=== PATIENT | female | born 1965 | race Caucasian/White ===

== ENCOUNTER 2021-01-25 20:01 | Emergency (ER) | payer MEDICAID ==
[~2021-01-25] VITALS: Ht 167.6 cm; Wt 100.0 kg
[2021-01-25 20:30] VITALS: BP 168/103
[2021-01-25] MEDS ORDERED: AZIT250T PO (21:02)
[2021-01-25] MEDS ORDERED: BENZ-38 PO (21:02)
== END 2021-01-25 21:54 | disposition home or self-care (01) ==
LOC: ER 20:01
DX: J06.9 Acute upper respiratory infection, unspecified (principal); Z20.822 Contact with and (suspected) exposure to COVID-19
CPT/HCPCS: 71045; 87635; 99284; C9803

== ENCOUNTER 2024-10-03 07:03 | Emergency (ER) | payer MEDICAID ==
[~2024-10-03] VITALS: Ht 160 cm; Wt 69.1 kg
[~2024-10-03 07:03] MED LIST: AZIT250T PO
--- NOTE | 2024-10-03 07:32 | ELECTROCARDIOGRAPH REPORT ---
[facility] Test Date: 2024-10-03 Test Time: 07:29:48 Pat Name: ARTURO KANG Department: [facility] Patient ID: [id number] Room: Gender: F Coppersmith Helper: VENECIA : 1965 Requested By: CAL ARCHER Order Number: [id number] Reading MD: Measurements Intervals [place] Rate: 63 P: 44 SC: 125 QRS: 28 QRSD: 98 T: 51 QT: 448 QTc: 459 Interpretive Statements Sinus rhythm Probable left atrial enlargement RSR' in V1 or V2, right VCD or RVH Please click the below link to view image of tracing.
[2024-10-03 07:36] LABS: MEAN PLATELET VOLUME 10.0 FL (7.4-10.4); RED CELL DISTRIBUTION WIDTH 13.9 % (11.5-14.5)
[2024-10-03 07:55] LABS: CREATININE 0.84 MG/DL (0.40-0.90); PRO BRAIN NATRIURETIC PEPTIDE 130 PG/ML (0-125); TOTAL CARBON DIOXIDE 23.7 MMOL/L (24-32); eCRCL 60 ML/MIN; eGFR 69 ML/MIN
--- NOTE | 2024-10-03 08:07 | Physician Documentation ---
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 No palliating or aggravating factors were elicited with the patient. She did not attempt to treat her symptoms and was transported into the emergency department. It was not accompanied by chest pain. Did report some shortness a breath. All this was accompanied by rather severe nausea. Reports generalized weakness. Symptoms are abating. Glucose was slightly elevated at 1:34 a.m. despite patient fasting all night. No concern for tobacco, alcohol or illicit substances use Medication Reconciliation Allergies: Coded Allergies: No Known Allergies (Unverified , 01/25/21) Scheduled Azithromycin (Zithromax), 1 DOSPAK PO UD Past Medical History Past Medical History: No Pertinent History Past Surgical History: no surgical history Drug Use: none Lives In: Home Review of Systems ROS 10 point review of systems was performed and unless noted above in HPI is negative for acute process/complaint. Physical Exam Vital Signs: Temperature: 97.6, Source: Temporal, Heart Rate: 65, Respiratory Rate: 12, BP: 136/70, Pulse Oximetry: 97, Weight: 69.090 Oxygen Flow Rate: 0 Physical Exam Physical examination: GENERAL: Awake, alert, oriented, GCS 15, no apparent distress, non-toxic appearing, answers questions, follows commands appropriately. HEENT: Atraumatic, normocephalic, pupils equal, extraocular muscles intact Active gross movements, sclerae anicteric, mucus membranes moist, no stridor. NECK: Midline, no JVD CARDIOVASCULAR: Good skin perfusion without evidence of pallor, mottling. PULMONARY: Nonlabored, symmetric chest rise, no audible wheezing, no accessory muscle use, no respiratory distress, speaking in full sentences. GASTROINTESTINAL: Not distended. NEUROLOGIC: Lucid with normal mental status. Normal facial symmetry. Moves all extremities symmetrically and with purpose. No truncal ataxia. Speech is fluid without evidence of dysarthria or aphasia, no focal deficits appreciated. EXTREMITIES: Acute deformities Skin: warm, dry PSYCHIATRIC: Normal affect, normal insight, normal concentration. Focused exam: [] Progress Results/Orders Results/Orders Orders - CAL ARCHER DO Chest,Single View (10/03/24 07:14) Monitor (10/03/24 07:14) Saline Lock (10/03/24 07:14) Oxygen (10/03/24 07:14) Hs Troponin I W Calculations (10/03/24 10:14) Completed Orders - CAL ARCHER DO Chest,Single View (10/03/24 07:14) Cbc/Diff (10/03/24 07:14) BMP (10/03/24 07:14) PBNP (10/03/24 07:14) Electrocardiogram (10/03/24 07:14) Hs Troponin I W Calculations (10/03/24 07:14) Hs Troponin I W Calculations (10/03/24 09:14) TSH (10/03/24 07:19) Free T4 (10/03/24 07:19) D-Dimer (10/03/24 09:05) Vital Signs 10/03/24 10/03/24 10/03/24 07:04 07:25 08:00 Temp 97.6 97.6 Pulse 86 65 Resp 20 12 12 B/P (MAP) 136/70 136/70 (92) Pulse Ox 99 97 O2 Flow Rate 0 0 Laboratory Tests Test 10/03/24 07:23 10/03/24 09:26 White Blood Count 15.9 H Red Blood Count 4.64 Hemoglobin 15.1 Hematocrit 43.8 Mean Corpuscular Volume 94.4 Mean Corpuscular Hemoglobin 32.6 H Mean Corpuscular Hemoglobin Concent 34.6 Red Cell Distribution Width 13.9 Platelet Count 225 Mean Platelet Volume 10.0 Neutrophils (%) (Auto) 68.1 Lymphocytes (%) (Auto) 23.8 Monocytes (%) (Auto) 6.3 Eosinophils (%) (Auto) 1.2 Basophils (%) (Auto) 0.6 Neutrophils # (Auto) 10.8 H Lymphocytes # (Auto) 3.8 Monocytes # (Auto) 1.0 H Eosinophils # (Auto) 0.2 Basophils # (Auto) 0.1 CBC Comment D-Dimer 0.31 D-Dimer Comment Sodium Level 137 Potassium Level 3.6 Chloride Level 104 Carbon Dioxide Level 23.7 L Anion Gap 9 Blood Urea Nitrogen 12 Creatinine 0.84 Estimated GFR/1.73 m2 69 BUN/Creatinine Ratio 14.3 Glucose Level 134 H Calcium Level 8.8 Troponin I High Sensitivity 8 5 Pro-B-Type Natriuretic Peptide 130 H Albumin 3.6 Thyroid Stimulating Hormone (TSH) 1.16 Free Thyroxine 1.23 Chemistry Comments Troponin I High Sens Percent Delta 37 Troponin I Hi Sens Absolute Change -3 Medical Decision Making Findings Facility Status: ED Holds, [facility] process The plan was discussed with the patient, who demonstrates clear understanding of the plan and is in agreement with the plan unless otherwise noted in the chart. All questions have been answered, all concerns were addressed unless otherwise documented. I was available throughout their ED stay for frequent reassessment and questions. Differential Diagnoses (considered and possible or likely): [Syncope/near- syncope, atrial arrhythmia such as a flutter, AFib, less likely ventricular arrhythmia, dehydration, electrolyte derangement, ACS, hypoglycemia, less likely PE] ??Differential Diagnoses (considered and unlikely, not requiring evaluation currently): [No evidence of lateralizing sinuses suspect a stroke] MDM Data Please see [facility] for the following: Independent Historians and external Records Review. Historian: [Patient] Independent Historians: ?[Record review] Medication Management: [Reviewed medication list] Social History and determinants: [Reviewed] Please see the body of the note for the following: Any independent interpretations of ECG, imaging studies. All vitals signs/haemodynamics, ordered tests were independently reviewed and interpreted by myself. Nursing triage complaint and vitals reviewed, additional nursing notes were reviewed as available and I agree unless otherwise noted or documented in contradiction in the chart Vital Signs: Independently reviewed Labs: Independently interpreted Imaging: Independently interpreted Old Medical Records: Independently reviewed, see HPI for relevant summary and information Pulse Oximetry: [97%] interpreted as [normal on room air] by me [Roadmaster: [Regular Rate, Regular rhythm, no ectopy, NSR] reviewed and interpreted by me] Additionally notably showing: [Hemodynamics reviewed. The patient isn't febrile, not tachycardic, no evidence of hypotension respiratory distress. Laboratory studies reviewed. Mild leukocytosis noted. No neutrophilic predominance. D-dimer is negative. Chemistry panel notable for slightly elevat ed glucose. Negative troponin. Thyroid studies are normal. Chest x-ray was obtained [place] no acute cardiopulmonary disease.] Tests considered but not ordered include: [CTA has been considerably does not appear to be necessary given negative D-dimer] Social Determinants of Health Impact: Patient was evaluated in [facility], [facility] [place] healthcare due to below par ratio of patient to medical providers. [] Comorbid Conditions Impacting Present Evaluation and Care/Treatment: [None] Management Discussions with other Healthcare Providers: [Non] Treatment and Disposition Medication Management (Given or considered): []. See EMR for details Consideration for Hospitalization/Escalation/Deescalation of Care: Admission for observation has been considered, [however the patient is able to tolerate p.o., their symptoms are controlled, they are able to rely on oral medications, and their chief complaint/diagnosis can be managed on outpatient basis.] ?ED Course:?[No clinical deterioration. No explanation for the presenting symptoms. The patient should follow-up with her primary care provider.] ?Shared decision making:?[Patient is hemodynamically stable for discharge home with follow with their primary care provider. [ ] Specific and cautious return precautions provided and discussed with full understanding. Any incidental findings were also discussed and follow up recommendations given. [] All questions answered. Patient/family were able to verbalize back return precautions. Patient/family agree to plan. Copies of imaging and laboratory studies were provided.] Code status:?FULL Please see the full Electronic Medical Record for full details of nursing documentation, medications list, other records of complete past medical history and conditions, vital signs, laboratory studies, and any radiologic study interpretations by radiologists. Portions of this note were completed using [employer] dictation software and as a result there may exist minor errors in spelling. I have reviewed elements of past family and social history and agree as included in note. Departure Disposition: 01 HOME / SELF CARE / HOMELESS Impression: Primary Impression: Dizziness Additional Impression: Transient hypotension Condition: Improved Discharge Instructions: Dizziness Referrals: NO PRIMARY CARE PROVIDER (PCP) Education Educated: Patient Educated regarding: diagnosis, treatment, prognosis, need for follow up Signature Scribe Signature: No scribe Attestation: This note accurately reflects clinical decisions, work performed by myself, DO GIANNI Bowie NICHOLAS M DO Oct 03, 2024 08:07
--- NOTE | 2024-10-03 08:19 | RADIOLOGY REPORT ---
CHEST RADIOGRAPH Indication: CP Technique: Single frontal view of the chest was obtained Comparison: CHEST,SINGLE VIEW on DOS: 01/25/21 FINDINGS: Lines and Tubes: None Lungs: No focal consolidation. Pleura: No effusion. No pneumothorax. Cardiomediastinal contours: Unremarkable Bones: No acute osseous abnormality. IMPRESSION: No acute cardiopulmonary disease.
[2024-10-03 10:00] VITALS: BP 113/55; PULSE 73; RESP 20; O2SAT 98
[2024-10-03 10:16] VITALS: TEMP 97.6
== END 2024-10-03 10:49 | disposition home or self-care (01) ==
LOC: ER 07:03
DX: I95.9 Hypotension, unspecified (principal); R42 Dizziness and giddiness; R53.1 Weakness; R11.0 Nausea
CPT/HCPCS: 36415; 71045; 80048; 83880; 84439; 84443; 84484; 85025; 85379; 93005; 99285

== ENCOUNTER 2024-11-05 11:00 | Emergency (ER) | payer MEDICAID, OTHER ==
[~2024-11-05] VITALS: Ht 160 cm; Wt 68.2 kg
[2024-11-05 12:03] VITALS: BP 154/76; PULSE 87; RESP 18; O2SAT 95
--- NOTE | 2024-11-05 12:12 | Physician Documentation ---
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 The patient tells me that she was a recent hired and has been struggling at her job. She denies any substance use. She denies any acute medical issues. She tells me that she is willing to undergo alcohol and drug testing. She does take prescription Klonopin at night to help her sleep. No other acute concerns. Medication Reconciliation Allergies: Coded Allergies: No Known Allergies (Unverified , 11/05/24) Scheduled Azithromycin (Zithromax), 1 DOSPAK PO UD Past Medical History Past Medical History: No Pertinent History Past Surgical History: no surgical history Drug Use: none Lives In: Home Review of Systems All Other Systems at this time: Reviewed and Negative Physical Exam Physical Exam Vital Signs: Temperature: 98.1, Source: Temporal, Heart Rate: 87, Respiratory Rate: 18, BP: 154/76, Pulse Oximetry: 95, Weight: 68.180 Oxygen Flow Rate: 0 Physical Exam General: This is a pleasant and sad appearing middle-aged woman, sitting quietly in bed HEENT: Atraumatic, tearful Heart: Regular rate and rhythm, normal-appearing peripheral perfusion Lungs: Normal phonation, normal work of breathing, normal oxygen saturation on room air Neuro: Alert and oriented, hard of hearing, does have a hearing aid device Psychiatric: The patient is tearful and appears mildly distressed about her situation. She does not appear clinically intoxicated, does not appear to be responding to internal stimuli, is cooperative Progress Results/Orders Results/Orders Completed Orders - CASSIE MANUEL MD Ethanol (11/05/24 11:38) Drug Screen, Urine (11/05/24 11:38) Vital Signs 11/05/24 11/05/24 11:01 12:03 Temp 98.1 98.1 Pulse 91 87 Resp 16 18 B/P (MAP) 165/63 154/76 (102) Pulse Ox 99 95 O2 Flow Rate 0 0 Laboratory Tests Test 11/05/24 11:45 11/05/24 11:50 Urine Opiates Screen Negative Urine Methadone Screen Negative Urine Fentanyl Screen Negative Urine Barbiturates Screen Negative Urine Phencyclidine Screen Negative Urine Amphetamines Screen Negative Urine Benzodiazepines Screen Positive Urine Cocaine Screen Negative Urine Cannabinoids Screen Negative Drug Screen Comment Ethyl Alcohol Level < 10 Medical Decision Making Additional info obtained from: other Findings I spoke to the nursing treating plant supervisor, who expressed concerns about the patient's behavior. They are requesting alcohol and drug screening because it is a weekend and that is hospital policy Differential Diagnosis The patient presents with concern for possible substance use while at work. Here in the ED, she does appear upset about the situation, but does not appear clinically intoxicated during my exam. She does take prescription Klonopin to help her sleep at night. She denies any other substance use. Alcohol level is negative. Urine drug screen is positive for benzodiazepines which could be consistent with Klonopin use. The patient does not have evidence of another acute medical or surgical emergency at this time. She will be discharged and follow up with human resources. Departure Time of Disposition: 12:47 Disposition: 01 HOME / SELF CARE / HOMELESS Impression: Primary Impression: General medical exam Condition: Stable Referrals: NO PRIMARY CARE PROVIDER (PCP) Education Educated: Patient Educated regarding: diagnosis, need for follow up Signature Scribe Signature: na Attestation: CASSIE Wood MD Nov 05, 2024 12:12
[2024-11-05 12:20] LABS: URINE AMPHETAMINE SCREEN NEGATIVE (Neg); URINE BARBITUATE SCREEN NEGATIVE (Neg); URINE BENZODIAZEPINES SCREEN POSITIVE (Neg); URINE CANNABINOID SCREEN NEGATIVE (Neg); URINE COCAINE SCREEN NEGATIVE (Neg); URINE METHADONE SCREEN NEGATIVE (Neg); URINE OPIATE SCREEN NEGATIVE (Neg); URINE PHENCYCLIDINE SCREEN NEGATIVE (Neg)
[2024-11-05 13:02] VITALS: TEMP 98.1
== END 2024-11-05 13:57 | disposition home or self-care (01) ==
LOC: EEVIPCON 11:00 → ER 11:00
DX: Z00.00 Encounter for general adult medical examination without abnormal findings (principal); H91.93 Unspecified hearing loss, bilateral; Z79.899 Other long term (current) drug therapy
CPT/HCPCS: 36415; 80305; 80320; 99283